=== PATIENT | male | born 1960 | race Caucasian/White ===

== ENCOUNTER → 2018-08-03 15:05 | Outpatient (CLI) | payer BC, SELFPAY ==
--- NOTE | 2018-08-03 15:10 | XR_ITS ---
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 There is a mild rotatory component. All lumbar vertebrae appear intact and disc spaces are well maintained throughout. There is no pars defect. The SI joints are normal there are hypertrophic facet changes at levels L3-4 through L5-S1. IMPRESSION: Stable mild levoscoliotic curvature, moderate diffuse hypertrophic facet changes lower lumbar spine
== END ==
PROVIDERS: PCP Family Medicine; Visit Provider Family Medicine
DX: M54.5 Low back pain (principal)
CPT/HCPCS: 72110

== ENCOUNTER → 2019-10-11 10:01 | Outpatient (CLI) | payer BC, SELFPAY ==
--- NOTE | 2019-10-11 10:08 | XR_ITS ---
PROCEDURE: XR SHOULDER LT MIN 2V CLINICAL INDICATION: LT SHOULDER PAIN no known injury COMPARISON: No exams were available for comparison FINDINGS: The humeral head and glenoid appear intact. There is minimal spurring of the greater tuberosity of the humeral head resulting in minimal compromise of the subacromial space. Clavicle is intact and the AC joint appears normal. There are no soft tissue calcifications. IMPRESSION: Minimal spurring greater tuberosity and if there are symptoms suggestive of impingement syndrome consider a follow-up MRI scan left shoulder for additional evaluation. Dictated by: Dr. Ruddy Rodriges MD 10/11/2019 10:[address] Ruddy Rodriges MD in [place] 10/11/2019 10:40
== END ==
PROVIDERS: PCP Family Medicine; Visit Provider Family Medicine
DX: M25.512 Pain in left shoulder (principal)
CPT/HCPCS: 73030

== ENCOUNTER → 2022-01-17 12:27 | Outpatient (CLI) | payer BC, SELFPAY ==
--- NOTE | 2022-01-17 12:33 | CT_ITS ---
FINAL REPORT CLINICAL HISTORY: RT FLANK PAIN,LOW BACK PAIN,HEMATURIA FINDINGS: Axial CT images of the abdomen and pelvis were obtained without intravenous contrast. Coronal reformatted images were also obtained.This study was performed with techniques to keep radiation doses as low as reasonably achievable (ALARA). Individualized dose reduction techniques using automated exposure control or adjustment of mA and/or kV according to the patient's size were employed. Abdomen: There is mild left lung base atelectasis or scarring. There is no evidence of renal stone. There is mild right hydronephrosis. There is a 5 mm proximal right ureteral stone which is seen at the L3-4 level.. There are postoperative changes from cholecystectomy. The liver, spleen and pancreas have an unremarkable, unenhanced appearance. No mass or adenopathy is seen. No inflammatory process is identified. Pelvis: The appendix is normal. No distal ureteral stone is identified. There are multiple phleboliths within the pelvis. No mass is identified. IMPRESSION: Mild right hydronephrosis with a 5 mm proximal right ureteral stone seen at the L3-4 level. Reviewed, Interpreted and Dictated by Brady Reynoso III, MD Transcribed by Leah Kuo Authenticated and [facility]
== END ==
PROVIDERS: PCP Family Medicine; Visit Provider Family Medicine
DX: R10.9 Unspecified abdominal pain (principal); M54.50 Low back pain, unspecified; R31.29 Other microscopic hematuria
CPT/HCPCS: 74176

== ENCOUNTER → 2022-01-25 16:19 | Outpatient (CLI) | payer BC, SELFPAY ==
[2022-02-10 15:50] LABS: Specimen Type Not Provided
== END ==
PROVIDERS: Visit Provider Urology
DX: N20.1 Calculus of ureter (principal)
CPT/HCPCS: 82370

== ENCOUNTER 2023-12-22 12:30 | Outpatient (CLI) | payer BC, SELFPAY ==
[2023-12-22 12:54] LABS: Basophils % 0.5 % (0.1-2.0); Eosinophils # 0.2 K/mm3 (0.0-0.4); Eosinophils % 2.3 % (0.1-12.0); Hemoglobin 16.9 g/dL (14.1-18.0); Lymphocytes # 1.8 K/mm3 (0.7-4.5); Lymphocytes % 25.2 % (10-50); Mean Corpuscular HGB Conc 35.2 g/dL (31.8-35.4); Mean Corpuscular Hemoglobin 32.7 pg (27.0-31.2); Mean Corpuscular Volume 92.9 fl (80-94); Mean Platelet Volume 6.7 fl (7.4-10.4); Monocytes # 0.4 K/mm3 (0.1-1.0); Monocytes % 5.2 % (1.7-9.3); Neutrophils # 4.7 K/mm3 (1.8-7.8); Neutrophils % 66.8 % (37.0-80.0); Platelet Count 229 K/mm3 (142-424); Red Blood Count 5.17 M/mm3 (4.60-6.20); Red Cell Distribution Width 13.6 % (11.5-17.5)
[2023-12-22 13:37] LABS: Chloride 106 mmol/L (98-107); Potassium 4.2 mmoL/L (3.5-5.1); Sodium 140 mmol/L (136-145)
[2023-12-22 13:39] LABS: Alanine Aminotransferase 30 U/L (12-78); Alkaline Phosphatase 68 U/L (38-126); Aspartate Amino Transferase 27 U/L (17-59); Bilirubin,Total 0.5 mg/dl (0.2-1.3); Blood Urea Nitrogen 14 mg/dl (9-20); Estimated Glomerular Filt Rate 68 ml/min (>60); GFR (African American) 82 ML/MIN (>60)
[2023-12-22 13:40] LABS: Albumin Level 4.5 g/dl (3.5-5.0); Albumin/Globulin Ratio 1.6 (1.1-1.8); Anion Gap 13.2 mEq/L (5-15); Calcium 9.6 mg/dl (8.4-10.2); Carbon Dioxide 25 mmol/L (22.0-30.0); Globulin 2.8 g/dL (1.3-3.2); Glucose 103 mg/dl (74-100); Magnesium 1.7 mg/dl (1.6-2.3); Phosphorous 4.1 mg/dl (2.5-4.5); Total Protein,Serum 7.3 g/dl (6.3-8.2)
[2023-12-22 13:54] LABS: 25-OH Vitamin D, Total 108 ng/mL (30-100)
[2023-12-22 14:01] LABS: Troponin I < 0.01 ng/ml (0.00-0.034)
[2023-12-22 14:10] LABS: Thyroid Stimulating Hormone 1.43 uIU/mL (0.465-4.68)
[2023-12-22 14:24] LABS: Uric Acid 6.2 mg/dl (3.5-8.5)
== END 2023-12-22 23:59 | disposition home or self-care (01) ==
LOC: LAB 12:32
PROVIDERS: PCP Family Medicine; Visit Provider Family Medicine
DX: R55 Syncope and collapse (principal); I10 Essential (primary) hypertension; E55.9 Vitamin D deficiency, unspecified; Z68.30 Body mass index [BMI] 30.0-30.9, adult
CPT/HCPCS: 36415; 80053; 82306; 83735; 84100; 84443; 84484; 84550; 85025; 93270